=== PATIENT | male | born 1965 | race Two or more races ===

== ENCOUNTER 2017-07-16 06:07 | Day surgery (SDC) | payer BC ==
[2017-07-16] VITALS (7 sets, daily range): BP systolic 110–132; BP diastolic 64–89
[~2017-07-16] VITALS: Ht 170.2 cm; Wt 69.9 kg
[~2017-07-16 06:07] MED LIST: DULERA 100 MCG/13 GM INH; PROVENTIL2 MG ORAL
--- NOTE | 2017-07-16 06:32 | Anethesia Preoperative Eval ---
Anesthesia Pre-op PMH/ROS General Date of Evaluation: Jul 16, 2017 Time of Evaluation: 06:30 Anesthesiologist: gem ASA Score: ASA 3 Mallampati Score Class I : Soft palate, uvula, fauces, pillars visible Class II: Soft palate, uvula, fauces visible Class III: Soft palate, base of uvula visible Class IV: Only hard plate visible Mallampati Classification: Class II Surgeon: donnie Diagnosis: gerd Surgical Procedure: egd/colonoscopy Anesthesia History: none Social History: smoking - former Family History: no anesthesia problems Allergies: Coded Allergies: LATEX (Verified Allergy, Mild, 07/16/17) skin rash Medications: see eMAR Past Medical History Pulmonary: Reports: asthma PSxH Narrative: right inguinal herniorrhaphy Anesthesia Pre-op Phys. Exam Physician Exam Last Vital Signs Date Time Temp Pulse Resp B/P (MAP) Pulse Ox O2 Delivery O2 Flow Rate FiO2 07/16/17 06:59 97.9 63 20 123/75 96 Room Air Constitutional: NAD Neurologic: CN 2-12 intact Cardiovascular: RRR Respiratory: CTA Gastrointestinal: S/NT/ND Airway Exam Mallampati Score: Class II MO: full Neck: supple TMD: 2fb ROM: full Teeth: intact Anesthesia Pre-op A/P Risk Assessment & Plan Assessment: asa3 Plan: mac Status Change Before Surgery: No Pre-Antibiotics Drug: EVELYN Brush Jul 16, 2017 06:32
[2017-07-16] MEDS ORDERED: LR 1000ml ONE (07:00)
[2017-07-16] MEDS ORDERED: Propofol 200mg/20ml IV ONE (07:00)
[2017-07-16] MEDS ORDERED: Lidocaine 1% MPF 10mg/ml 5ml ONE (07:00)
--- NOTE | 2017-07-16 07:08 | Pre-Procedure Note/Attestation ---
Pre-Procedure Note/Attestation Complete Prior to Procedure Planned Procedure: not applicable Procedure Narrative: EGD/Colon Indications for Procedure Pre-Operative Diagnosis: GERD, Screen Attestation I attest that I discussed the nature of the procedure; its benefits; risks and complications; and alternatives (and the risks and benefits of such alternatives ), prior to the procedure, with the patient (or the patient's legal bank representative). I attest that, if there was a reasonable possibility of needing a blood transfusion, the patient (or the patient's legal bank representative) was given the [facility] standardized written summary, pursuant to the Arnulfo Iggy Blood Safety Act ([place] Health and Safety Code # 1645, as amended). I attest that I re-evaluated the patient just prior to the surgery and that there has been no change in the patient's H&P, except as documented below: NAY ALVARES Jul 16, 2017 07:08
--- NOTE | 2017-07-16 07:09 | Short Stay Surgery H&P ---
History of Present Illness History of Present Illness Chief Complaint see attached H&P HPI Francy Bustillos is a 52 year old male who was admitted on for GERD Patient History Allergies: Coded Allergies: LATEX (Verified Allergy, Mild, 07/16/17) skin rash PAST MEDICAL HISTORY: Past Surgeries: Social History: Medication History Scheduled Albuterol Sulf (Albuterol Sulfate), 2 PUFFS ORAL PRN, (Reported) Mometasone/Formoterol (Dulera 100 Mcg/5 Mcg Inhaler), 2 PUFFS INH EVERY 12 HOURS , (Reported) Physical Exam Vital Signs Last Vital Signs Date Time Temp Pulse Resp B/P (MAP) Pulse Ox O2 Delivery O2 Flow Rate FiO2 07/16/17 06:59 97.9 63 20 123/75 96 Room Air Plan Attestation Are the patient's medical conditions optimized for surgery? NAY ALVARES Jul 16, 2017 07:09
[2017-07-16] MEDS ORDERED: LR 1000ml 1,000 ML IVLG SCH (07:21)
[2017-07-16] MEDS ORDERED: Atropine Inj 1mg/10ml Syr IV PRN (07:30)
[2017-07-16] MEDS ORDERED: fentaNYL 100 mcg/2 mL IV PRN (07:30)
[2017-07-16] MEDS ORDERED: Midazolam 2mg/2ml Inj IVP PRN (07:30)
[2017-07-16] MEDS ORDERED: DiphenhydrAMINE 50mg/ml Inj IVP PRN (07:30)
--- NOTE | 2017-07-16 08:04 | Immediate Post-Op Evaluation ---
Immediate Post-Op Evalulation Immediate Post-Op Evalulation Procedure: egd/colonoscopy Date of Evaluation: Jul 16, 2017 Time of Evaluation: 07:59 IV Fluids: 350ml lr Blood Products: none Estimated Blood Loss: negligible Blood Pressure Systolic: 110 Blood Pressure Diastolic: 64 Pulse Rate: 62 Respiratory Rate: 18 O2 Sat by Pulse Oximetry: 100 Temperature (Fahrenheit): 97.4 Pain Score (1-10): 0 Nausea: No Vomiting: No Complications none Patient Status: awake, reacts, patent Hydration Status: adequate Drug: EVELYN Brush Jul 16, 2017 08:04
--- NOTE | 2017-07-16 08:05 | 48 Hour Post Anesthesia Eval ---
Post Anesthesia Evaluation Procedure: egd/colonoscopy Date of Evaluation: Jul 16, 2017 Time of Evaluation: 08:04 Blood Pressure Systolic: 111 0: 66 Pulse Rate: 64 Respiratory Rate: 18 Temperature (Fahrenheit): 97.4 O2 Sat by Pulse Oximetry: 99 Airway: patent Nausea: No Vomiting: No Pain Intensity: 0 Hydration Status: adequate Cardiopulmonary Status: stable Mental Status/LOC: patient returned to baseline Post-Anesthesia Complications: none Follow-up care needed: N/A EVELYN THAPA Jul 16, 2017 08:05
--- NOTE | 2017-07-16 08:19 | Endoscopy Procedure Note ---
Endoscopy Procedure Note Indication for Procedure: GERD, Screen Operative Findings/Diagnosis: gastritis, inlet patch, normal colon Specimen: yes Pt Tolerated Procedure Well: Yes Estimated Blood Loss: none Anesthesiologist: Jamel Sky Anesthesia: MAC Medication Given: see anesthesia record Implant(s) used?: No 50 yrs or older w/o bx or poly: Yes 10yrs. F/U not recommended: Yes If not recommended, why?: 10 yrs. F/U needed: Yes 18 years or older w/prev. colo: No <3yrs. since last colonoscopy: No Med reason:<3 yrs.: System Reason:<3 yrs.: Last colonoscopy >= to 3yrs: Yes NAY ALVARES Jul 16, 2017 08:19
--- NOTE | 2017-07-16 08:20 | Brief Operative Note ---
Immediate Post Operative Note Operative Note Chief Complaint: GERD, screen Pre-op Diagnosis: GERD, Screen Procedure: EGD,bx colon Surgeon: donnie Anesthesiologist: see report Anesthesia: MAC Specimen: yes Complications: none Condition: stable Fluids: see reprt Estimated Blood Loss: none Drains: none Implant(s) used?: No NAY ALVARES Jul 16, 2017 08:20
--- NOTE | 2017-07-16 18:30 | Operative Note - Dictated ---
DATE OF OPERATION: 07/16/2017 GASTROENTEROLOGY PROCEDURE REPORT PROCEDURE: Upper gastrointestinal endoscopy with biopsy as well as colonoscopy. SURGEON: Guille Tabares M.D. ANESTHESIA: Please see separate anesthesiologist notes for details. PRE-ENDOSCOPIC DIAGNOSES: 1. Symptoms of possible reflux-induced asthma. 2. Family history of gastric cancer. 3. Need for screening colonoscopy. POST-ENDOSCOPIC DIAGNOSES: 1. Mild nonerosive antral gastritis, status post biopsy. 2. Erosive proximal gastritis, status post biopsy. 3. Esophageal inlet patch. 4. Normal colonoscopy. PROCEDURE: The procedure, its risks, indications, alternatives, and possible complications including, but not limited to bleeding, infection, perforation, , and anesthesia complications were explained to the patient and informed consent was obtained. The patient was then sedated in the left lateral decubitus position and a diagnostic upper endoscope was introduced through the oropharynx and advanced to duodenum without difficulty. The endoscope was then gradually withdrawn and the mucosa examined carefully. Examination of the upper gastrointestinal mucosa revealed mild nonerosive antral gastritis as well as mild erosive fundus gastritis. Biopsies were sent to pathology for review. The lower esophagus appeared normal with no evidence of esophagitis. Random biopsy of the lower esophagus was sent to pathology for review. There was a 1 cm esophageal inlet patch seen in the upper esophagus. The endoscope was removed. The rectal exam was done. The colonoscope was then introduced into the rectum and advanced to the terminal ileum without difficulty. The colonoscope was then gradually withdrawn and the mucosa examined carefully. The terminal ileum was normal and the colonic mucosa did not reveal any polyps or abnormalities. Retroflexed view of the rectum was unremarkable. The colonoscope was removed, and the patient was sent to recovery in good condition. COMPLICATIONS: None. RECOMMENDATIONS: 1. Follow up biopsy results. 2. Check and treat Helicobacter pylori if positive. 3. Outpatient followup. Thank you for asking me to participate in the care this patient. Guille Tabares M.D. DR: LATASHA JOB#: [id number] CC: Chidi White M.D.
== END 2017-07-16 08:50 | disposition home or self-care (01) ==
LOC: GAS 06:07
DX: Z12.11 Encounter for screening for malignant neoplasm of colon (principal); K29.50 Unspecified chronic gastritis without bleeding; K22.8 Other specified diseases of esophagus; K21.9 Gastro-esophageal reflux disease without esophagitis; Z80.0 Family history of malignant neoplasm of digestive organs; Z91.040 Latex allergy status; Z87.891 Personal history of nicotine dependence
CPT/HCPCS: 43239; 45378; J2704; J7120; 94003; 94150